=== PATIENT | female | born 1950 | race Caucasian/White ===

== ENCOUNTER 2017-01-02 23:32 | Emergency (ER) | payer MEDICARE, OTHER ==
--- NOTE | 2017-01-03 00:31 | ED Physician Documentation ---
PD HPI ABD PAIN - Stated complaint Stated Complaint: ABD/BACK PX/DIARR - Chief complaint Chief Complaint: Abd Pain - History obtained from History obtained from: Patient - History of Present Illness Timing - onset: Last night Timing - details: Gradual onset, Waxing and waning Pain level max: 8 Pain level now: 3 Quality: Pain Location: Epigastric Radiation: Lower back Improved by: No: Eating, Laying still, Vomiting, BM, Position, Meds Worsened by: No: Eating, Moving, Breathing, Position, Palpation Associated symptoms: Nausea (resolved), Vomiting. 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 : None HEENT: None Psych: Depression Musculoskeletal: None Derm: None - Past Surgical History Past Surgical History: Yes - Present Medications Home Medications: Ambulatory Orders Medication Instructions Recorded Confirmed Furosemide [Lasix] 01/02/17 Sertraline [Zoloft] 01/02/17 rOPINIRole [Requip] 01/02/17 HYDROcod/ACETAM 5/325 [[place] 5/325] 1 - 2 ea PO Q6H PRN #15 tablet 01/03/17 Ondansetron HCl [Zofran] 4 mg PO Q6HR PRN #14 tablet 01/03/17 - Allergies Allergies/Adverse Reactions: Allergies Allergy/AdvReac Type Severity Reaction Status Date / Time No Known Drug Allergies Allergy Verified 01/02/17 23:48 - Social History Does the pt smoke?: No Smoking Status: Never smoker Does the pt drink ETOH?: No Does the pt have substance abuse?: No - Immunizations Immunizations are current?: Yes PD ED PE NORMAL - Vitals Vital signs reviewed: Yes - General General: Alert and oriented X 3, No acute distress, Well developed/nourished - HEENT HEENT: Moist mucous membranes - Neck Neck: Supple, no meningeal sign - Cardiac Cardiac: RRR, No murmur - Respiratory Respiratory: No respiratory distress, Clear bilaterally - Abdomen Abdomen: Normal bowel sounds, Soft, Non distended - Back Back: No CVA TTP - Derm Derm: Normal color, Warm and dry, No rash - Extremities Extremities: No edema PD ED PE EXPANDED - Abdomen Abdomen: Tender to palpation, LUQ, Periumbilical Results - Vitals Vitals: Oxygen O2 Source Room air - Labs Labs: Laboratory Tests 01/03/17 01/03/17 01/03/17 01:06 01:06 02:30 WBC 14.2 H RBC 4.25 Hgb 12.9 Hct 39.0 MCV 91.7 MCH 30.2 MCHC 32.9 RDW 13.4 Plt Count 199 MPV 9.1 Neut # 12.3 H Lymph # 1.2 L Coffee # 0.7 Eos # 0.0 Baso # 0.0 Absolute Nucleated RBC 0.01 Nucleated RBC % 0.0 Sodium 138 Potassium 3.8 Chloride 107 Carbon Dioxide 22 Anion Gap 9.0 BUN 12 Creatinine 0.6 Estimated GFR (MDRD) 100 Glucose 157 H Calcium 9.5 Total Bilirubin 0.9 AST 21 ALT 18 Alkaline Phosphatase 73 Total Protein 7.8 Albumin 4.4 Globulin 3.4 Albumin/Globulin Ratio 1.3 Lipase 37 Urine Color DARK YELLOW Urine Clarity CLEAR Urine pH 6.0 Ur Specific [place] >=1.030 H Urine Protein NEGATIVE Urine Glucose (UA) NEGATIVE Urine Ketones 40 H Urine Occult Blood NEGATIVE Urine Nitrite NEGATIVE Urine Bilirubin NEGATIVE Urine Urobilinogen 0.2 (NORMAL) Ur Leukocyte Esterase NEGATIVE Ur Microscopic Review NOT INDICATED Urine Culture Comments NOT INDICATED - Rads (name of study) CT A/P Radiology: Prelim report reviewed, See rad report PD MEDICAL DECISION MAKING - ED course Complexity details: reviewed results, re-evaluated patient, considered differential, d/w patient, d/w family Departure - Departure Disposition: 01 Home, Self Care Clinical Impression: Abdominal pain Condition: Good Instructions: ED Abdominal Pain Unkn Cause Prescriptions: Ondansetron HCl [Zofran] 4 mg PO Q6HR PRN #14 tablet PRN Reason: Nausea / Vomiting HYDROcod/ACETAM 5/325 [[place] 5/325] 1 - 2 ea PO Q6H PRN #15 tablet PRN Reason: Pain Discharge Date/Time: 01/03/17 06:38
[2017-01-03 01:14] LABS: BASOPHILS % (AUTO) 0.3 %; EOSINOPHILS % (AUTO) 0.1 %; HGB - HEMOGLOBIN 12.9 g/dL (12.0-16.0); LYMPHOCYTES # (AUTO) 1.2 10^3/uL (1.5-3.5); LYMPHOCYTES % (AUTO) 8.3 %; MEAN CORPUSCULAR HEMOGLOBIN 30.2 pg (27.0-31.0); MEAN CORPUSCULAR HGB CONC 32.9 g/dL (32.0-36.0); MEAN CORPUSCULAR VOLUME 91.7 fL (81.0-99.0); MEAN PLATELET VOLUME 9.1 fL (7.9-10.8); MONOCYTES # (AUTO) 0.7 10^3/uL (0.0-1.0); MONOCYTES % (AUTO) 4.8 %; NEUTROPHILS # (AUTO) 12.3 10^3/uL (1.5-6.6); NEUTROPHILS % (AUTO) 86.5 %; RED BLOOD COUNT 4.25 10^6/uL (4.20-5.40); RED CELL DISTRIBUTION WIDTH 13.4 % (12.0-15.0); UNCORRECTED WHITE BLOOD COUNT 14.2 x10^3/uL; WHITE BLOOD COUNT 14.2 x10^3/uL (4.8-10.8)
[2017-01-03 01:23] LABS: ALBUMIN/GLOBULIN RATIO 1.3 (1.0-2.2); BILIRUBIN,TOTAL 0.9 mg/dL (0.2-1.0); CALCIUM 9.5 mg/dL (8.5-10.3); CREATININE 0.6 mg/dL (0.4-1.0); POTASSIUM 3.8 mmol/L (3.5-5.0); TOTAL PROTEIN 7.8 g/dL (6.7-8.2)
[2017-01-03] MEDS ORDERED: IOPAMIDOL-300 50 ML VIAL ONE (01:24)
[2017-01-03] MEDS ORDERED: IOPAMIDOL-300 100 ML VIAL ONE (02:03)
[2017-01-03 02:39] LABS: BILIRUBIN,URINE NEGATIVE (NEGATIVE); UA CHARGE (STRIP ONLY) YES; UR CULTURE IF IND NOT INDICATED
[2017-01-03] MEDS ORDERED: IOPAMIDOL-300 50 ML VIAL PO ONE (02:42)
--- NOTE | 2017-01-03 03:13 | CT Preliminary Report ---
Exam: CT Abdomen/Pelvis W/ IMPRESSION: 1. Gastric bypass. No bowel obstruction seen. 2. Colonic diverticula without definite evidence of diverticulitis. 3. Colon is collapsed and appears mildly thickened. This may simply represent nondistention. Low-grad e colitis also possible. 4. There may be fatty liver. 5. Appendix not well seen. No appendicitis identified. [facility] SITE ID: [id number]
--- NOTE | 2017-01-03 03:16 | CT Report ---
EXAM: CT ABDOMEN AND PELVIS EXAM DATE: 01/03/2017 02:49 AM. CLINICAL HISTORY: Abdominal pain. COMPARISONS: None. TECHNIQUE: Routine helical CT imaging was performed through the abdomen and pelvis. IV contrast: Eloise onic. Enteric contrast: No. Reconstructions: Coronal and sagittal. In accordance with CT protocol optimization, one or more of the following dose reduction techniques w ere utilized for this exam: automated exposure control, adjustment of mA and/or KV based on patient s ize, or use of iterative reconstructive technique. FINDINGS: Lung Bases: No focal consolidation. Coronary artery calcifications. Liver: Possible fatty infiltration. Gallbladder/Bile Ducts: Status post cholecystectomy. Spleen: Normal. Pancreas: Normal. Adrenal Glands: Normal. Kidneys: Normal. No masses or hydronephrosis. Peritoneal Cavity/Bowel: Colonic diverticula. No definite diverticulitis. Gastric bypass. No obvious bowel obstruction. Colon is collapsed and appears mildly thickened. No free air or free fluid. No lym phadenopathy. Appendix is not well seen. No evidence of appendicitis. Pelvic Organs: Normal. The bladder and visualized pelvic organs are within normal limits. Vasculature: Mild to moderate atherosclerosis. No aortic aneurysm. Bones: Degenerative changes are seen in the spine. Grade 1 degenerative spondylolisthesis at L5-S1. Other: None. IMPRESSION: 1. Gastric bypass. No bowel obstruction seen. 2. Colonic diverticula without definite evidence of diverticulitis. 3. Colon is collapsed and appears mildly thickened. This may simply represent nondistention. Low-grad e colitis also possible. 4. There may be fatty liver. 5. Appendix not well seen. No appendicitis identified. [facility] Referring Provider Line: [phone] SITE ID: [id number]
[2017-01-03 05:24] VITALS: BP 154/68
[2017-01-03] MEDS ORDERED: HYDROcod/ACETAM 5/325 MG TABLET PO STA (06:19)
[2017-01-03] MEDS ORDERED: HYDROcod/ACETAM 5/325 MG TABLET ONE (06:26)
== END 2017-01-03 06:38 | disposition home or self-care (01) ==
LOC: ED 23:32
DX: R10.13 Epigastric pain (principal); M54.5 Low back pain; R11.2 Nausea with vomiting, unspecified; Z98.84 Bariatric surgery status
CPT/HCPCS: 36415; 74177; 80053; 81003; 83690; 85025; 99283; A9270; Q9967; 81001; 87086

== ENCOUNTER 2017-04-13 14:09 | Emergency (ER) | payer MEDICARE, OTHER ==
[2017-04-13 14:45] VITALS: BP 128/62
--- NOTE | 2017-04-13 15:33 | XRAY Report ---
EXAM: LEFT SHOULDER RADIOGRAPHY EXAM DATE: 04/13/2017 03:24 PM. CLINICAL HISTORY: Pain s/p fall. COMPARISON: None. TECHNIQUE: 3 views. FINDINGS: Bones: Normal. No fracture or bone lesion. Joints: Mild AC joint DJD. The glenohumeral and acromioclavicular joints are otherwise normal. Soft tissues: The visualized hemithorax is unremarkable. No soft tissue swelling. IMPRESSION: No acute osseous abnormality. [facility] Referring Provider Line: [phone] SITE ID: [id number]
--- NOTE | 2017-04-13 15:33 | XRAY Preliminary Report ---
Exam: XR SHOULDER 3 VIEW LT IMPRESSION: No acute osseous abnormality. [facility] SITE ID: [id number]
--- NOTE | 2017-04-13 15:35 | XRAY Preliminary Report ---
Exam: XR RIBS W/PA CHEST RT IMPRESSION: No acute cardiopulmonary abnormality. No acute osseous abnormality. Please note that a nondisplaced rib fracture may be radiographically inapparent. [facility] SITE ID: [id number]
--- NOTE | 2017-04-13 15:35 | XRAY Report ---
EXAM: RIGHT RIB RADIOGRAPHY EXAM DATE: 04/13/2017 03:24 PM. CLINICAL HISTORY: Pain s/p fall. COMPARISON: None. TECHNIQUE: 1 view of the chest and 2 views of the ribs. FINDINGS: Bones: Normal. No fracture or bone lesion. Lungs: No focal opacities. No pneumothorax. No pleural effusions. Mediastinum: Heart and mediastinal contours are unremarkable. Other: Right upper quadrant surgical clips are present. IMPRESSION: No acute cardiopulmonary abnormality. No acute osseous abnormality. Please note that a nondisplaced rib fracture may be radiographically inapparent. [facility] Referring Provider Line: [phone] SITE ID: [id number]
[2017-04-13] MEDS ORDERED: HYDROcod/ACETAM 5/325 MG TABLET PO STA (15:46)
--- NOTE | 2017-04-13 15:49 | ED Physician Documentation ---
History of Present Illness - Stated complaint Stated Complaint: R SIDE INJ - Chief complaint Chief Complaint: General - History obtained from History obtained from: Patient - History of Present Illness Timing: Other (She tripped over her dog's leash 5 days ago and injured her right chest wall, also sprained her left shoulder. 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 : None HEENT: None Psych: Depression Musculoskeletal: None Derm: None - Past Surgical History Past Surgical History: Yes - Present Medications Home Medications: Ambulatory Orders Medication Instructions Recorded Confirmed Furosemide [Lasix] 01/02/17 Sertraline [Zoloft] 01/02/17 rOPINIRole [Requip] 01/02/17 HYDROcod/ACETAM 5/325 [[place] 5/325] 1 - 2 ea PO Q6H PRN #15 tablet 01/03/1708/24 Ondansetron HCl [Zofran] 4 mg PO Q6HR PRN #14 tablet 01/03/17 04/13/17 HYDROcod/ACETAM 5/325 [[place] 5/325] 1 - 2 ea PO Q6H PRN #20 tablet 04/13/17 Pot Chloride/Pot Bicarb/Cit AC 04/13/17 [Potassium Cl 25 Meq Tab Eff] - Allergies Allergies/Adverse Reactions: Allergies Allergy/AdvReac Type Severity Reaction Status Date / Time No Known Drug Allergies Allergy Verified 01/02/17 23:48 - Social History Does the pt smoke?: No Smoking Status: Never smoker Does the pt drink ETOH?: No Does the pt have substance abuse?: No - Immunizations Immunizations are current?: Yes - POLST Patient has POLST: Yes PD ED PE NORMAL - Vitals Vital signs reviewed: Yes - General General: Alert and oriented X 3, No acute distress - HEENT HEENT: PERRL, EOMI - Neck Neck: Supple, no meningeal sign, No bony TTP - Cardiac Cardiac: RRR, No murmur - Respiratory Respiratory: No respiratory distress, Clear bilaterally - Extremities Extremities: Other (Very tender to the right lateral chest wall low down, no ecchymosis or abdominal tenderness. The shoulder is nontender on the left but she is only able to abduct to about 90 actively. Neurovascular intact in the hand.) - Neuro Neuro: Alert and oriented X 3, Normal speech Results - Vitals Vitals: Vital Signs - 24 hr 04/13/17 14:40 Temperature 36.1 C L Heart Rate 57 L Respiratory 20 Rate Blood Pressure 128/62 O2 Saturation 98 Oxygen O2 Source Room air - Rads (name of study) X-rays of the right ribs and left shoulder Radiology: EMP read contemporaneously (Negative) PD MEDICAL DECISION MAKING - ED course ED course: Clinically probably has a rib fracture although this is occult on x-ray, The patient and family were counseled as to the diagnosis and need for follow- up. I counseled the patient with regard to signs and symptoms that would necessitate an urgent reevaluation in the emergency department. They understand they are welcome to return at any time if worse or if not improving as expected. This document was made in part using voice recognition software. While efforts are made to proofread this documents, sound alike and grammatical errors may occur. Departure - Departure Disposition: 01 Home, Self Care Clinical Impression: Chest wall contusion Qualifiers: Encounter type: initial encounter Laterality: right Qualified Code(s): S20.211A - Contusion of right front wall of thorax, initial encounter Contusion of left shoulder Qualifiers: Encounter type: initial encounter Qualified Code(s): S40.012A - Contusion of left shoulder, initial encounter Condition: Good Record reviewed to determine appropriate education?: Yes Instructions: ED Contusion Vs Minor Fx Rib Prescriptions: HYDROcod/ACETAM 5/325 [[place] 5/325] 1 - 2 ea PO Q6H PRN #20 tablet PRN Reason: Pain Comments: Your x-rays are negative, but there is a possibility of a rib fracture not showing up given that it still hurts on day 5. Follow-up with your physician and return if worse. Do not drink or drive while taking narcotic pain medication. Note that many narcotic pain relievers also contain Tylenol/acetaminophen. Please ensure that your total dose of acetaminophen from all sources does not exceed 3 g (3000 mg) per day. You may get constipated while on this medication. Take a stool softener such as Colace twice a day while you are on it. Also add an [id number] laxative such as senna or MiraLAX on any day that you do not have a bowel movement. If you received a narcotic pain medication or sedative while in the emergency department, do not drive for the next 24 hours.
== END 2017-04-13 15:58 | disposition home or self-care (01) ==
LOC: ED 14:09
DX: S20.211A Contusion of right front wall of thorax, initial encounter (principal); S40.012A Contusion of left shoulder, initial encounter; W01.0XXA Fall on same level from slipping, tripping and stumbling without subsequent striking against object, initial encounter; Y92.019 Unspecified place in single-family (private) house as the place of occurrence of the external cause
CPT/HCPCS: 71101; 73030; 99283; A9270